=== PATIENT | female | born 1995 | race Two or more races ===

== ENCOUNTER 2025-01-27 04:38 | Inpatient (IN) | payer OTHER ==
[~2025-01-27] VITALS: Ht 162.6 cm; Wt 2.7 kg
[2025-01-27 03:44] VITALS: BP 113/72
[~2025-01-27 04:38] MED LIST: DOCUSATE SODIU100 MG PO; HUMULIN 70100 UNIT/2 SUBCUTANEO; IBU600 MG PO; IBUPROFEN800 MG PO; PRENATAL TABLE1 EAC1 PO
[2025-01-27] MEDS ORDERED: RINGERS SOLUTION,LACTATED 1,000 ML IV SCH ×2 (04:45→07:15)
[2025-01-27] MEDS ORDERED: ERYTHROMYCIN BASE OPHT 1GM EACH TUBE OP ONE ×3 (05:31→07:15)
[2025-01-27] MEDS ORDERED: OXYTOCIN 10 UNITS/ML VIAL ONE ×3 (05:31→09:41)
[2025-01-27 05:53] LABS: BASO % 0.2 % (0.1-1.2); EOS # 0.02 (0.04-0.54); EOS % 0.2 % (0.7-7.0); LYMPH # 1.58 (1.18-3.74); LYMPH % 18.0 % (19.3-53.1); MEAN PLATELET VOLUME 13.00 fl (9.4-12.4); MONO # 0.50 (0.24-0.82); MONO % 5.7 % (4.7-12.5); NEUT # 6.62 (1.56-6.13); NEUT % 75.6 % (34.0-71.1); RED CELL DISTRIBUTION WIDTH 12.4 % (11.6-14.4)
[2025-01-27] MEDS ORDERED: CHLORHEXIDINE GLUCONATE 120 ML BOTTLE TOP ONE (06:01)
[2025-01-27] MEDS ORDERED: HUMULIN N100 UNIT/2 SUBCUTANEO (06:05)
[2025-01-27 06:14] VITALS: BP 111/71; O2SAT 99
[2025-01-27 06:24] LABS: INR 0.97
[2025-01-27] MEDS ORDERED: CEFOXITIN SODIUM 2,000 MG VIAL IV ONE ×2 (06:29→09:00)
[2025-01-27 06:35] LABS: ALT/SGPT 29.0 U/L (12-78); AST/SGOT 21.0 U/L (15-37); BILIRUBIN TOTAL 0.22 mg/dL (0.3-1.2); BUN CREA RATIO 14.0 (7.0-25.0); CREATININE SERUM 0.73 mg/dL (0.55-1.02); GFR 92.99; GLOBULINA 3.5 G/DL (2.4-3.5); GLUCOSE FASTING 104.0 mg/dL (65-100); OSMOLALITY SERUM 282.0 MOSM/KG (275-295)
[2025-01-27] MEDS ORDERED: CHLORHEXIDINE GLUCONATE 120 ML BOTTLE TP NR (07:15)
[2025-01-27] MEDS ORDERED: KETOROLAC TROMETHAMINE 30 MG VIAL IV NR (07:15)
[2025-01-27] MEDS ORDERED: OXYTOCIN 1,000 ML IV SCH (07:15)
[2025-01-27] MEDS ORDERED: PROMETHAZINE HCL 50 MG/ML AMPUL IV SCH (07:18)
[2025-01-27] MEDS ORDERED: MORPHINE SULFATE 4 MG/ML CARTRIDGE IV SCH (09:00)
[2025-01-27] MEDS ORDERED: SIMETHICONE 125 MG CAPSULE PO SCH (09:00)
[2025-01-27] MEDS ORDERED: DOCUSATE SODIUM 100MG CAP PO SCH (09:00)
[2025-01-27] MEDS ORDERED: KETOROLAC TROMETHAMINE 30 MG VIAL ONE (09:52)
[2025-01-27 10:47] VITALS: BP 110/71
[2025-01-27 10:58] LABS: BASO % 0.1 % (0.1-1.2); EOS # 0.01 (0.04-0.54); EOS % 0.1 % (0.7-7.0); LYMPH # 1.11 (1.18-3.74); LYMPH % 9.2 % (19.3-53.1); MEAN PLATELET VOLUME 13.20 fl (9.4-12.4); MONO # 0.37 (0.24-0.82); MONO % 3.1 % (4.7-12.5); NEUT # 10.47 (1.56-6.13); NEUT % 87.2 % (34.0-71.1); RED CELL DISTRIBUTION WIDTH 12.3 % (11.6-14.4)
[2025-01-27 16:08] VITALS: BP 93/60
[2025-01-27 20:37] VITALS: BP 105/62
[2025-01-28 01:22] VITALS: BP 99/61
[2025-01-28 09:45] VITALS: BP 85/50
[2025-01-28] MEDS ORDERED: NAPROXEN 500 MG TABLET PO PRN (10:45)
[2025-01-28] MEDS ORDERED: ACETAMINOPHEN WITH CODEINE 1 UDTAB TABLET PO PRN (10:45)
[2025-01-28 16:16] VITALS: BP 96/61
[2025-01-29 00:54] VITALS: BP 100/62
[2025-01-29 00:56] VITALS: BP 100/62
[2025-01-29 08:07] VITALS: BP 100/64
[2025-01-29 15:55] VITALS: BP 106/68
[2025-01-30 02:01] VITALS: BP 104/68
[2025-01-30 08:03] VITALS: BP 106/69
[2025-01-30] MEDS ORDERED: NAPR500T14 PO (12:06)
[2025-01-30] MEDS ORDERED: Tylenol #3 PO (12:06)
== END 2025-01-30 12:16 | disposition home or self-care (01) | DRG 788 ==
LOC: LDR 04:38 → OB/GYN 04:38
PROVIDERS: ADMIT Obstetrics & Gynecology; ATTEND Obstetrics & Gynecology
PROC: 4A1HXCZ Monitoring of Products of Conception, Cardiac Rate, External Approach (ICD-10-PCS; 2025-01-27)
PROC: 10D00Z1 Extraction of Products of Conception, Low, Open Approach (ICD-10-PCS; principal; 2025-01-27 07:00)
DX: O34.211 Maternal care for low transverse scar from previous cesarean delivery (principal); Z3A.37 37 weeks gestation of pregnancy; Z37.0 Single live birth